=== PATIENT | female | born 1980 | race African-American/Black ===

== ENCOUNTER 2016-08-20 15:56 | Emergency (ER) | payer MEDICAID ==
[~2016-08-20] VITALS: Ht 157.5 cm; Wt 90.2 kg
[2016-08-20] MEDS ORDERED: KETOROLAC 30MG/ML VIAL IV STA (16:47)
[2016-08-20] MEDS ORDERED: SODIUM CHLORIDE 0.9% 1,000 ML IV ONE (16:47)
[2016-08-20] MEDS ORDERED: LORAZEPAM 2MG/ML CPJ IV ONE (17:00)
[2016-08-20 17:12] LABS: BASOPHILS % 0.4 % (0.0-2.0); EOSINOPHILS % 0.8 % (0.0-5.0); HEMATOCRIT. 38.9 % (36.0-48.0); HEMOGLOBIN. 12.7 g/dL (12.0-16.0); LYMPHOCYTES % 42.4 % (20.0-50.0); MEAN CORPUSCULAR HEMOGLOBIN 28.1 pg (28.0-32.0); MONOCYTES % 7.6 % (2.0-8.0); NEUTROPHILS % 48.8 % (40.0-76.0); PLATELET 278 x1000/uL (130-400); RED BLOOD CELL COUNT 4.52 mill/uL (4.2-5.4); RED CELL DISTRIBUTION WIDTH 13.7 % (11.6-14.6)
[2016-08-20 17:21] LABS: D-DIMER 0.41 mg/L FEU (<0.50); PROTHROMBIN TIME 10.7 sec
[2016-08-20 17:24] LABS: HCG SCREEN NEGATIVE
[2016-08-20 17:32] LABS: CARBON DIOXIDE 28 mEq/L (21-32); CHLORIDE 108 mEq/L (98-107)
[2016-08-20 17:33] LABS: TROPONIN I < 0.02 ng/mL (0.00-0.04)
[2016-08-20] MEDS ORDERED: SUMATRIPTAN SUCCINATE 6MG/0.5ML VIAL SUBCUT ONE (18:30)
[2016-08-20 20:25] VITALS: BP 127/75
== END 2016-08-20 20:40 | disposition home or self-care (01) ==
LOC: ER 16:36
DX: R07.89 Other chest pain (principal); G43.909 Migraine, unspecified, not intractable, without status migrainosus; F12.10 Cannabis abuse, uncomplicated; Z86.73 Personal history of transient ischemic attack (TIA), and cerebral infarction without residual deficits; Z98.51 Tubal ligation status; Z98.890 Other specified postprocedural states
CPT/HCPCS: 36415; 71010; 80053; 83605; 83690; 83880; 84443; 84484; 84703; 85025; 85379; 85610; 93005; 96361; 96374; 96375; 99285; J1885; J2060; J3030; J7030; Z7610

== ENCOUNTER 2017-06-07 08:18 | Emergency (ER) | payer MEDICAID ==
[~2017-06-07] VITALS: Ht 154.9 cm; Wt 91.0 kg
[2017-06-07] MEDS ORDERED: ONDANSETRON HCL 4MG/2ML VIAL IV STA (08:48)
[2017-06-07] MEDS ORDERED: SODIUM CHLORIDE 0.9% 1,000 ML IV ONE (08:48)
[2017-06-07] MEDS ORDERED: MORPHINE SULFATE 4 MG/ML CPJ (NOT FOR IM USE) IV STA (08:48)
[2017-06-07 09:27] LABS: CLARITY URINE CLEAR (CLEAR); COLOR URINE YELLOW (YELLOW); KETONES URINE NEGATIVE (NEGATIVE); LEUKOCYTE ESTERASE URINE NEGATIVE (NEGATIVE); NITRITE URINE NEGATIVE (NEGATIVE); OCCULT BLOOD URINE NEGATIVE (NEGATIVE); PH URINE 5.5 (4.5-8.0); PROTEIN URINE NEGATIVE (NEGATIVE); SPECIFIC GRAVITY URINE 1.021 (1.005-1.030); UROBILINOGEN URINE 0.2 E.U./dL (0.2-1.0)
[2017-06-07 10:01] LABS: *AMPHETAMINES SCREEN URINE NEGATIVE (NEGATIVE); *BARBITURATES SCREEN URINE NEGATIVE (NEGATIVE); *BENZODIAZEPINES SCREEN URINE NEGATIVE (NEGATIVE); *COCAINE SCREEN URINE NEGATIVE (NEGATIVE); METHADONE URINE SCREEN NEGATIVE (NEGATIVE); OPIATES URINE SCREEN NEGATIVE (NEGATIVE)
[2017-06-07 10:02] LABS: CANNABINOID URINE SCREEN NEGATIVE (NEGATIVE); PHENCYCLIDINE URINE SCREEN NEGATIVE (NEGATIVE)
[2017-06-07] MEDS ORDERED: DIAZEPAM 5 MG TABLET PO ONE (11:00)
[2017-06-07 11:42] VITALS: BP 123/75
== END 2017-06-07 11:46 | disposition home or self-care (01) ==
LOC: ER 08:57
DX: R51 Headache (principal); M54.5 Low back pain; R05 Cough; R03.0 Elevated blood-pressure reading, without diagnosis of hypertension; F17.210 Nicotine dependence, cigarettes, uncomplicated; Z71.6 Tobacco abuse counseling; Z88.5 Allergy status to narcotic agent
CPT/HCPCS: 71045; 72100; 80305; 81003; 96361; 96374; 96375; 99285; J2270; J2405; J7030; Z7610

== ENCOUNTER 2019-02-05 02:44 | Emergency (ER) | payer OTHER, MEDICAID ==
[~2019-02-05] VITALS: Ht 154.9 cm; Wt 100.0 kg
[2019-02-05] MEDS ORDERED: GUAIFENESIN 200MG/10ML SUGAR FREE UDC PO ONE (03:45)
[2019-02-05 04:05] LABS: BASOPHILS % 0.8 % (0.0-2.0); EOSINOPHILS % 3.4 % (0.0-5.0); HEMATOCRIT. 37.6 % (36.0-48.0); HEMOGLOBIN. 12.5 g/dL (12.0-16.0); LYMPHOCYTES % 45.2 % (20.0-50.0); MEAN CORPUSCULAR HEMOGLOBIN 28.9 pg (28.0-32.0); MEAN CORPUSCULAR VOLUME 87.1 fL (81.0-99.0); MEAN PLATELET VOLUME 8.8 fl (7.4-10.4); MONOCYTES % 8.1 % (2.0-8.0); NEUTROPHILS % 42.5 % (40.0-76.0); PLATELET 314 x1000/uL (130-400); RED BLOOD CELL COUNT 4.32 mill/uL (4.2-5.4); RED CELL DISTRIBUTION WIDTH 13.8 % (11.6-14.6)
[2019-02-05 04:08] LABS: CHLORIDE 107 mEq/L (98-107)
[2019-02-05 06:17] VITALS: BP 126/72
== END 2019-02-05 06:19 | disposition home or self-care (01) ==
LOC: ER 02:44
DX: J40 Bronchitis, not specified as acute or chronic (principal); R04.2 Hemoptysis; G51.0 Bell's palsy; G43.909 Migraine, unspecified, not intractable, without status migrainosus; F12.10 Cannabis abuse, uncomplicated; Z85.41 Personal history of malignant neoplasm of cervix uteri; Z90.710 Acquired absence of both cervix and uterus; Z88.5 Allergy status to narcotic agent
CPT/HCPCS: 36415; 71045; 83880; 84484; 93005; 99284

== ENCOUNTER 2021-07-08 16:43 | Emergency (ER) | payer MEDICAID, OTHER ==
[~2021-07-08] VITALS: Ht 154.9 cm; Wt 93.0 kg
[2021-07-08] MEDS ORDERED: IBUPROFEN 600MG TABLET PO ONE (17:30)
[2021-07-08 18:02] VITALS: BP 133/81
[2021-07-08] MEDS ORDERED: IBUP-2028 MT (18:27)
== END 2021-07-08 18:45 | disposition home or self-care (01) ==
LOC: ER 16:43
DX: M54.9 Dorsalgia, unspecified (principal); J40 Bronchitis, not specified as acute or chronic; G43.909 Migraine, unspecified, not intractable, without status migrainosus; V43.62XA Car passenger injured in collision with other type car in traffic accident, initial encounter; Y93.89 Activity, other specified; Y92.410 Unspecified street and highway as the place of occurrence of the external cause; Z88.6 Allergy status to analgesic agent; Z90.710 Acquired absence of both cervix and uterus; Z98.890 Other specified postprocedural states
CPT/HCPCS: 99282